=== PATIENT | female | born 1995 | race Caucasian/White ===

== ENCOUNTER 2016-11-16 19:15 | Emergency (ER) | payer BC ==
[2016-11-16 19:28] VITALS: BP 134/77
--- NOTE | 2016-11-16 20:22 | UC ---
Bite Injury/Animal HPI - HPI Summary HPI Summary: complaint of pain in right hand that started tongiht 5:30 bitten by her own dog after dog was in a fight puncture wound back of hand and teeth scraped her 3rd finger not able to move 3rd finger at PIP joint took ibuprofen 200 tonigjht dog is UTD on vaccinations UTD on tetenus 2012 - History of Current Complaint Chief Complaint: UCBiteInjury Stated Complaint: DOG BITE TO HAND Time Seen by Provider: 11/16/16 20:13 Hx Last Menstrual Period: 11/06/16 - Allergies/Home Medications Allergies/Adverse Reactions: Allergies Allergy/AdvReac Type Severity Reaction Status Date / Time Cefuroxime [From Ceftin] Allergy Unknown Verified 11/16/16 19:29 Reaction Details Penicillins Allergy Hives Verified 11/16/16 19:29 Home Medications: Home Medications Ibuprofen TAB* [Advil TAB*] 400 mg PO Q6H PRN 11/16/16 [History Confirmed ] Norgestimate-Eth Estradiol(NF) [Ortho Tri-Cyclen (NF)] 1 tab PO DAILY 11/16/16 [ History Confirmed 11/16/16] PMH/Surg Hx/FS Hx/Imm Hx Respiratory History Of: Reports: Asthma - Surgical History Surgical History: None - Social History Alcohol Use: Rare Substance Use Type: None Smoking Status (MU): Never Smoked Tobacco Review of Systems Constitutional: Negative Skin: Other - puncture wound, sratch Eyes: Negative ENT: Negative Respiratory: Negative Cardiovascular: Negative Gastrointestinal: Negative Genitourinary: Negative Motor: Negative Neurovascular: Negative Musculoskeletal: Negative Neurological: Negative Psychological: Negative All Other Systems Reviewed And Are Negative: Yes Physical Exam Triage Information Reviewed: Yes Appearance: No Pain Distress, Well-Nourished Vital Signs: Initial Vital Signs Temp 96.1 F 11/16/16 19:24 Pulse 85 11/16/16 19:24 Resp 18 11/16/16 19:24 BP 134/77 11/16/16 19:24 Pulse Ox 100 11/16/16 19:24 Vital Signs Reviewed: Yes Eyes: Positive: Conjunctiva Clear ENT: Positive: Pharynx normal, TMs normal Neck: Positive: No Lymphadenopathy Respiratory: Positive: Lungs clear, Normal breath sounds, No respiratory distress Cardiovascular: Positive: RRR, No Murmur, Pulses Normal Abdomen Description: Positive: Nontender, Soft Bowel Sounds: Positive: Present Musculoskeletal: Positive: Other: - RUE-right hand- index finger edema , ecchymosis, difficult to bend joint top of right hand with puncture woundbetween 2nd and 3rd metacarpal Neurological: Positive: Alert Psychological Exam: Normal Skin: Positive: Other - see musculoskeletal Bite Injury Course/Dx - Differential Dx/Diagnosis Differential Diagnosis/HQI/PQRI: Crush Injury, Fracture, Puncture Provider Diagnoses: right hand puncture wound right hand- dog bite Discharge - Discharge Plan Condition: Stable Disposition: HOME Prescriptions: DOXYcycline CAP(*) [DOXYcycline 100MG CAP(*)] 100 mg PO BID #14 cap Metronidazole [Flagyl 500 MG TAB] 500 mg PO TID #21 tab Patient Education Materials: Animal Bite (ED) Referrals: Erica Orr MD [Primary Care Provider] - Additional Instructions: Please take antibiotic as directed. Increase fluids and rest Take acetaminophen or ibuprofen for pain If you have an increase in pain, redness and swelling or your develop a fever please return to urgent care for evaluation Please review your discharge instructions. . If your symptoms do not improve please call your primary care provider or return to urgent care
--- NOTE | 2016-11-16 20:57 | RAD ---
INDICATION: Right third digit injury COMPARISON: None TECHNIQUE: AP, lateral, and oblique views were obtained. FINDINGS: The bony structures, joint spaces, and soft tissues are normal for age. IMPRESSION: NO ACUTE FRACTURE
== END 2016-11-16 21:16 | disposition home or self-care (01) ==
LOC: UCCORT 19:15
DX: S61.451A Open bite of right hand, initial encounter (principal); W54.0XXA Bitten by dog, initial encounter; Y92.9 Unspecified place or not applicable; Z88.0 Allergy status to penicillin; Z88.1 Allergy status to other antibiotic agents
CPT/HCPCS: 73140; 99202; G0463

== ENCOUNTER 2016-11-17 11:29 | Emergency (ER) | payer BC ==
[2016-11-17 12:52] VITALS: BP 121/68
--- NOTE | 2016-11-17 13:30 | UC ---
Bite Injury/Animal HPI - HPI Summary HPI Summary: Was seen 11/16/16 for superficial dog bite injuries to R hand; wounds all abrasions and mild PWs. Was Rx doxycycline but pharmacy was closed after d/c. Has not started abx yet. Today saw new red stripes coming from wounds, one of dorsal 3rd finger, one on dorsal hand. Stripes are parallel, the one on the hand goes between minor wounds and stops. - History of Current Complaint Chief Complaint: UCBiteInjury Stated Complaint: RE CK DOG BITE (RED LINE) Time Seen by Provider: 11/17/16 13:15 Hx Obtained From: Patient Hx Last Menstrual Period: 11/05/16 ?: No Severity Currently: Mild Severity Initially: Mild Onset/Duration: Sudden Onset Type of Bite: Animal Character: Puncture, Abrasion/Laceration Aggravating Factor(s): Nothing Alleviating Factor(s): Nothing Associated Signs And Symptoms: Positive: Erythema Animal Available for Observation: Yes Animal Control Notified: Yes - Risk Factors Infection/Sepsis Risk Factors: Delay in Initial Treatment - Allergies/Home Medications Allergies/Adverse Reactions: Allergies Allergy/AdvReac Type Severity Reaction Status Date / Time Cefuroxime [From Ceftin] Allergy Unknown Verified 11/17/16 12:48 Reaction Details Penicillins Allergy Hives Verified 11/17/16 12:48 Home Medications: Home Medications Albuterol HFA INHALER* [Ventolin HFA Inhaler*] 1 - 2 puff INH Q4H PRN 11/17/16 [ History Confirmed 11/17/16] PMH/Surg Hx/FS Hx/Imm Hx Respiratory History Of: Reports: Asthma - Surgical History Surgical History: None - Family History Known Family History: Positive: Hypertension - Social History Alcohol Use: Rare Substance Use Type: None Smoking Status (MU): Never Smoked Tobacco - Immunization History Most Recent Influenza Vaccination: Not the 2016/2016 Season Most Recent Tetanus Shot: 2009 Review of Systems Constitutional: Negative Skin: Other - red stripes Eyes: Negative ENT: Negative Respiratory: Negative Cardiovascular: Negative Gastrointestinal: Negative Genitourinary: Negative Motor: Negative Neurovascular: Negative Musculoskeletal: Negative Neurological: Negative Psychological: Negative All Other Systems Reviewed And Are Negative: Yes Physical Exam Triage Information Reviewed: Yes Appearance: Well-Appearing, No Pain Distress, Well-Nourished Vital Signs: Initial Vital Signs Temp 98.5 F 11/17/16 12:46 Pulse 60 11/17/16 12:46 Resp 16 11/17/16 12:46 BP 121/68 11/17/16 12:46 Pulse Ox 100 11/17/16 12:46 Vital Signs Reviewed: Yes Eye Exam: Normal Eyes: Positive: Conjunctiva Clear ENT Exam: Normal ENT: Positive: Normal ENT inspection, Hearing grossly normal, Pharynx normal, TMs normal Dental Exam: Normal Neck exam: Normal Neck: Positive: Supple, Nontender, No Lymphadenopathy Respiratory Exam: Normal Respiratory: Positive: Chest non-tender, Lungs clear, Normal breath sounds, No respiratory distress, No accessory muscle use Cardiovascular Exam: Normal Cardiovascular: Positive: RRR, No Murmur Musculoskeletal Exam: Normal Neurological Exam: Normal Psychological Exam: Normal Skin Exam: Other - 2 parallel thin red lines in/around bite wounds, do not extend past the area of wounds, consistent with abraded skin. No lymphangitic streaking or erythema Bite Injury Course/Dx - Differential Dx/Diagnosis Provider Diagnoses: superficial dog bite wounds, no acute infection Discharge - Discharge Plan Condition: Stable Disposition: HOME Patient Education Materials: Animal Bite (ED) Referrals: Erica Orr MD [Primary Care Provider] - If Needed Additional Instructions: As we discussed, the pink lines around your bite pierce appear to be mild skin abrasions; I do NOT think you have signs of wound infection or lymphangitis. Please start your prescribed antibiotic right away and take a second dose before bedtime. Come back if there is increasing redness, swelling, or streaks that extend up the wrist or arm.
== END 2016-11-17 13:38 | disposition home or self-care (01) ==
LOC: UCCORT 11:29
DX: S60.571D Other superficial bite of hand of right hand, subsequent encounter (principal); J45.909 Unspecified asthma, uncomplicated; W54.0XXD Bitten by dog, subsequent encounter; Z88.0 Allergy status to penicillin; Z88.1 Allergy status to other antibiotic agents
CPT/HCPCS: 99211; G0463